=== PATIENT | female | born 1970 | race Caucasian/White ===

== ENCOUNTER → 2018-05-14 | Outpatient (CLI) | payer OTHER | LOC: M.CT 07:52 | DX: Z13.6 Encounter for screening for cardiovascular disorders (principal) ==

== ENCOUNTER → 2018-11-07 | Outpatient (CLI) | payer OTHER | LOC: M.RAD 13:17 | DX: M17.0 Bilateral primary osteoarthritis of knee (principal); Z88.8 Allergy status to other drugs, medicaments and biological substances ==